=== PATIENT | male | born 1995 | race Caucasian/White ===

== ENCOUNTER 2021-07-01 10:33 | Emergency (ER) | payer SELFPAY ==
[~2021-07-01] VITALS: Ht 177.8 cm; Wt 88.0 kg
--- NOTE | 2021-07-01 10:41 | NUR ---
PT AMBULATED TO ER BED 12 WITH A STEADY GAIT.
[2021-07-01 10:42] VITALS: BP 156/96
--- NOTE | 2021-07-01 10:46 | NUR ---
25 Y/O MALE C/O CHEST PAIN 09/12 X1WEEK NON-RADIATING. PT STATES HE HAS MULTIPLE STRESSORS AT HOME. DENIES FEVER/CHILLS. DENIES N/V. DENIES PMH NKA
--- NOTE | 2021-07-01 10:56 | NUR ---
DR. HENDRICKS AT PT BEDSIDE FOR FURTHER EVALUATION.
[2021-07-01] MEDS ORDERED: hydrOXYzine PAMOATE 25 MG CAP PO STA (11:00)
[2021-07-01] MEDS ORDERED: HYDR25CA1 PO (12:26)
[2021-07-01 12:36] VITALS: BP 137/84
--- NOTE | 2021-07-01 12:36 | NUR ---
Patient discharged with v/s stable. Written and verbal after care instructions given FOR PANIC ATTACH AND NONSPECIFIC CHEST PAIN and explained. Patient alert, oriented and verbalized understanding of instructions. Ambulatory with steady gait. All questions addressed prior to discharge. ID band removed. Patient advised to follow up with PMD. Rx of VISTARIL given. Patient educated on indication of medication including possible reaction and side effects. Opportunity to ask questions provided and answered.
== END 2021-07-01 12:36 | disposition home or self-care (01) ==
LOC: MED 10:33
DX: R07.89 Other chest pain (principal); F41.9 Anxiety disorder, unspecified; F12.10 Cannabis abuse, uncomplicated
CPT/HCPCS: 71045; 93005; 99283; Q0092; Q0177